=== PATIENT | male | born 1945 | race Caucasian/White ===

== ENCOUNTER 2017-01-31 15:37 | Emergency (ER) | payer MEDICARE, OTHER ==
[~2017-01-31] VITALS: Ht 172.7 cm; Wt 95.2 kg
[~2017-01-31 15:37] MED LIST: ASPIRIN EC81 MG PO; CETIRIZINE HCL10 MG PO; COLACE100 MG PO; EPLERENONE25 MG PO; METOPROLOL SUCC25 MG PO; NORCO 5-325 TA1 EACH PO; PLANT STEROLS PO; RESVERATROL250 MG PO; SPIRONOLACTONE25 MG PO; TURMERIC PO; VITAMIN C1000 MG PO; VITAMIN E400 UNI4 PO
[2017-01-31] MEDS ORDERED: XARELTO20 MG PO (20:08)
[2017-01-31] MEDS ORDERED: DILTIAZEM 24HR120 M1 PO (20:08)
--- NOTE | 2017-02-01 13:37 | EKG ---
[facility] [address] [place] [address] Signed Atrial fibrillation with rapid ventricular response Left axis deviation Abnormal ECG No previous ECGs available Confirmed by LUPE QUIROZ MD ([id number]) on 02/01/2017 1:37:36 PM Electronically Signed By: LUPE QUIROZ MD 02/01/17 1337 PATIENT NAME: ODILON TROY Electrocardiogram DATE OF : 43 PHYSICIAN: LUPE QUIROZ MD REPORT #: [id number] REPORT IS CONFIDENTIAL AND NOT TO BE RELEASED WITHOUT AUTHORIZATION
== END 2017-01-31 20:29 | disposition home or self-care (01) ==
LOC: ED 15:37
DX: I48.91 Unspecified atrial fibrillation (principal); I10 Essential (primary) hypertension; Z90.89 Acquired absence of other organs; Z88.1 Allergy status to other antibiotic agents; Z88.0 Allergy status to penicillin; Z79.82 Long term (current) use of aspirin; Z79.899 Other long term (current) drug therapy
CPT/HCPCS: 80053; 84484; 85025; 93005; 93010; 96374; 96376; 99284; J2704

== ENCOUNTER 2020-01-08 02:29 | Emergency (ER) | payer MEDICARE, OTHER ==
[~2020-01-08] VITALS: Ht 172.7 cm; Wt 95.2 kg
[~2020-01-08 02:29] MED LIST changes: +DILTIAZEM 24HR120 M1 PO; +XARELTO20 MG PO
[2020-01-08] MEDS ORDERED: AMLODIPINE BESY10 MG PO (02:50)
[2020-01-08] MEDS ORDERED: BISOPROLOL FUMAR5 MG PO (02:50)
[2020-01-08] MEDS ORDERED: LISINOPRIL10 MG PO (02:51)
[2020-01-08] MEDS ORDERED: HYDRALAZINE HCL25 MG PO (02:51)
[2020-01-08] MEDS ORDERED: 24HOUR ALLERGY10 MG PO (02:52)
[2020-01-08] MEDS ORDERED: PROTONIX40 MG PO (05:57)
[2020-01-08] MEDS ORDERED: NORCO 5-325 TA1 EACH PO (05:57)
== END 2020-01-08 07:02 | disposition home or self-care (01) ==
LOC: ED 02:29
DX: R10.11 Right upper quadrant pain (principal); I48.91 Unspecified atrial fibrillation; I10 Essential (primary) hypertension; Z88.0 Allergy status to penicillin; Z88.1 Allergy status to other antibiotic agents; Z79.899 Other long term (current) drug therapy
CPT/HCPCS: 71046; 74177; 76705; 80053; 81001; 83690; 85025; 85379; 96361; 99284-25; C9113; J1170; J2405; J7030; Q9967

== ENCOUNTER 2020-08-12 08:05 | Emergency (ER) | payer MEDICARE, OTHER ==
[~2020-08-12] VITALS: Ht 172.7 cm; Wt 90.7 kg
[~2020-08-12 08:05] MED LIST changes: +24HOUR ALLERGY10 MG PO; +AMLODIPINE BESY10 MG PO; +BISOPROLOL FUMAR5 MG PO; +HYDRALAZINE HCL25 MG PO; +LISINOPRIL10 MG PO; +PROTONIX40 MG PO
[2020-08-12] MEDS ORDERED: TORSEMIDE10 MG PO (08:34)
[2020-08-12] MEDS ORDERED: INSPRA25 MG PO (08:34)
[2020-08-12] MEDS ORDERED: VALSARTAN80 MG PO (08:34)
[2020-08-12] MEDS ORDERED: GRAPE SEED50 M1 PO (08:35)
== END 2020-08-12 09:45 | disposition home or self-care (01) ==
LOC: ED 08:05
DX: S43.402A Unspecified sprain of left shoulder joint, initial encounter (principal); X50.9XXA Other and unspecified overexertion or strenuous movements or postures, initial encounter; I48.91 Unspecified atrial fibrillation; I10 Essential (primary) hypertension; Z88.0 Allergy status to penicillin; Z88.1 Allergy status to other antibiotic agents; Z79.899 Other long term (current) drug therapy
CPT/HCPCS: 73030; 99283-25

== ENCOUNTER 2021-02-18 18:34 | Emergency (ER) | payer MEDICARE ==
[~2021-02-18] VITALS: Ht 172.7 cm; Wt 90.7 kg
[~2021-02-18 18:34] MED LIST changes: +GRAPE SEED50 M1 PO; +INSPRA25 MG PO; +TORSEMIDE10 MG PO; +VALSARTAN80 MG PO
--- NOTE | 2021-02-19 21:27 | EKG ---
[facility] [address] [place], [place] [address] Signed Sinus rhythm with 1st degree AV block Left anterior fascicular block Minimal voltage criteria for LVH, may be normal variant Abnormal ECG No previous ECGs available Confirmed by JACEY RAMIREZ DO ([id number]) on 02/19/2021 9:27:45 PM Electronically Signed By: JACEY RAMIREZ DO 02/19/212126 PATIENT NAME: DANYELSREEODILON Electrocardiogram DATE OF : 43 PHYSICIAN: JACEY RAMIREZ DO REPORT #: [id number] REPORT IS CONFIDENTIAL AND NOT TO BE RELEASED WITHOUT AUTHORIZATION
== END 2021-02-18 22:17 | disposition home or self-care (01) ==
LOC: ED 18:34
DX: U07.1 COVID-19 (principal)
CPT/HCPCS: 71045; 80053; 81001; 83605; 85025; 87040; 93005; 93010

== ENCOUNTER 2023-04-04 10:14 | Emergency (ER) | payer OTHER, MEDICARE ==
[~2023-04-04] VITALS: Ht 172.7 cm; Wt 90.7 kg
[2023-04-04 10:54] LABS: BILIRUBIN, URINE NEGATIVE (negative); BLOOD/HGB, URINE NEGATIVE (Negative); KETONE, URINE NEGATIVE (Negative); LEUK ESTERASE, URINE NEGATIVE (negative); NITRITE, URINE NEGATIVE (negative)
[2023-04-04 11:01] LABS: BASOPHILS 0.6 % (0-2); EOSINOPHILS 1.6 % (0-6); HEMATOCRIT 43.5 % (35.0-50.0); HEMOGLOBIN 14.8 g/dL (12.0-18.0); MCHC 34.1 g/dl (30-36); MCV 93.8 fl (81-99); MONOCYTES 12.6 % (0-12); NEUTROPHILS 68.2 % (39-80); PLATELET COUNT 186 K/uL (140-440); RBC 4.64 M/ul (4.3-5.7); RDW 13.3 (10.5-15.0)
[2023-04-04 11:11] LABS: ALBUMIN 3.8 g/dL (3.4-5.0); ALBUMIN/GLOBULIN RATIO 1.15 (1.1-2.4); ANION GAP 13.6 (7-21); BILIRUBIN, TOTAL 1.1 ng/dL (0.2-1.0); BUN/CREATININE RATIO 15.95 (6.0-28.6); CALCIUM 8.3 mg/dL (8.5-10.1); CREATININE, SERUM 0.94 mg/dL (0.70-1.30); POTASSIUM 4.6 mmol/L (3.5-5.1); PROTEIN, TOTAL 7.1 g/dL (6.4-8.2)
[2023-04-04 15:25] VITALS: BP 154/77
== END 2023-04-04 15:27 | disposition home or self-care (01) ==
LOC: ED 10:14
PROVIDERS: Emergency Medicine
DX: K76.89 Other specified diseases of liver (principal); K80.20 Calculus of gallbladder without cholecystitis without obstruction; I48.91 Unspecified atrial fibrillation; I10 Essential (primary) hypertension; Z88.0 Allergy status to penicillin; Z88.1 Allergy status to other antibiotic agents; Z79.899 Other long term (current) drug therapy
CPT/HCPCS: 36415; 74177; 80053; 81003; 83690; 85025; 99284; J7030; Q9967

== ENCOUNTER 2024-02-20 10:15 | Inpatient (IN) | payer OTHER, MEDICARE ==
[~2024-02-20] VITALS: Ht 172.7 cm; Wt 90.3 kg
[~2024-02-20 10:15] MED LIST changes: +DIOVAN160 MG PO; -VALSARTAN80 MG PO
[2024-02-20] MEDS ORDERED: SODIUM CHLORIDE 0.9% 1,000 ML IV PRN ×2 (10:45→12:30)
[2024-02-20] MEDS ORDERED: IBUPROFEN 600 MG TAB PO ONE (10:45)
[2024-02-20] MEDS ORDERED: CEFTRIAXONE/SODIUM CHLORIDE 2 GM/100 ML PIGGYBACK IV ONE (10:45)
[2024-02-20 10:54] LABS: BASOPHILS 0.3 % (0-2); EOSINOPHILS 0.2 % (0-6); HEMATOCRIT 40.9 % (35.0-50.0); LYMPHOCYTES 4.1 % (24-44); MCH 31.7 (27-36); MCHC 34.3 g/dl (30-36); MCV 92.4 fl (81-99); MONOCYTES 7.3 % (0-12); NEUTROPHILS 88.1 % (39-80); PLATELET COUNT 281 K/uL (140-440); RBC 4.42 M/ul (4.3-5.7); RDW 12.6 (10.5-15.0)
[2024-02-20 11:01] LABS: PARTIAL THROMBOPLASTIN TIME 35.2 Sec (22.9-41.3)
[2024-02-20 11:02] LABS: INR 1.17 (0.80-1.30); PROTIME 14.2 Sec (11.2-14.2)
[2024-02-20 11:05] LABS: ALBUMIN 3.1 g/dL (3.4-5.0); ALBUMIN/GLOBULIN RATIO 0.84 (1.1-2.4); BILIRUBIN, TOTAL 0.7 ng/dL (0.2-1.0); BUN/CREATININE RATIO 6.89 (6.0-28.6); CALCIUM 8.6 mg/dL (8.5-10.1); CREATININE, SERUM 1.16 mg/dL (0.70-1.30); PROTEIN, TOTAL 6.8 g/dL (6.4-8.2)
[2024-02-20 11:10] LABS: LACTIC ACID, BLOOD 0.8 mmol/L (0.4-2.0)
[2024-02-20 11:12] LABS: BILIRUBIN, URINE NEGATIVE (negative); BLOOD/HGB, URINE SMALL (Negative); KETONE, URINE NEGATIVE (Negative); LEUK ESTERASE, URINE SMALL (negative); NITRITE, URINE NEGATIVE (negative)
[2024-02-20 11:18] LABS: CRYSTALS, URINE NONE SEEN (0-1+); EPITHELIAL CELLS, URINE 0 /lpf (0-1+); WHITE BLOOD CELLS, URINE >50 /HPF (0-5)
[2024-02-20 11:19] LABS: BACTERIA, URINE 1+ /hpf (negative); CASTS, URINE NONE SEEN \\lpf; COLLECTION TYPE, URINE CLEAN CATCH; REFLEX CULTURE, URINE Yes (No)
[2024-02-20 11:46] LABS: INFLUENZA B NAA NEGATIVE (NEGATIVE); RESPIRATORY SYNCYTIAL VIR NAA NEGATIVE (NEGATIVE)
[2024-02-20] MEDS ORDERED: ACETAMINOPHEN 500 MG TAB PO ONE (12:30)
[2024-02-20] MEDS ORDERED: PANTOPRAZOLE SODIUM 40 MG/10 ML VIAL IV SCH (14:12)
[2024-02-20] MEDS ORDERED: ENOXAPARIN SODIUM 40 MG/0.4 ML SYR SUB-Q SCH (14:13)
[2024-02-20] MEDS ORDERED: LACTATED RINGER'S 1,000 ML IV SCH (14:15)
[2024-02-20] MEDS ORDERED: ACETAMINOPHEN 325 MG TAB PO PRN (14:15)
[2024-02-20] MEDS ORDERED: VANCOMYCIN HCL125 MG PO (14:32)
[2024-02-20] MEDS ORDERED: CEFDINIR300 MG PO (14:32)
[2024-02-20 15:07] VITALS: BP 136/64
[2024-02-20] MEDS ORDERED: HYDRALAZINE HCL25 MG PO (15:22)
[2024-02-20] MEDS ORDERED: ELIQUIS5 MG PO (15:23)
[2024-02-20 16:19] VITALS: BP 136/64
[2024-02-20] MEDS ORDERED: VANCOMYCIN HCL 125 MG CAP PO SCH (17:00)
--- NOTE | 2024-02-20 17:13 | NUR ---
IN ROOM TO ADMINISTER MEDICATIONS, SEE E-MAR. PATIENT TOLERATED PO MEDS WITHOUT DIFFICULTY. PATIENT DINNER ARRIVED. PATIENT DENIES ADDITIONAL NEEDS AT THIS TIME. HOME MEDICATIONS PLACED IN THE LOCK BOX. CALL LIGHT IN REACH.
[2024-02-20] MEDS ORDERED: PIPERACILLIN/TAZOBACTAM 3.375 GM in DEXTROSE 5% 100 ML IV SCH ×2 (17:15→22:00)
[2024-02-20 17:49] VITALS: BP 151/69
--- NOTE | 2024-02-20 17:51 | NUR ---
IN ROOM TO ADMINISTER MEDICATIONS, SEE E-MAR. PATIENT EDUCATED ON SIGNS AND SYMPTOMS OF POTENTIAL ALLERGIC REACTION TO ZOSYN GIVEN HX OF ALLERGY TO PENCILLIN. PATIENT ADVISED TO CALL IF THEY EXPERIENCE ANY SIGNS OR SYMPTOMS OF ALLERGIC REACTION. PATIENT VERBALIZED UNDERSTANDING. PATIENT HAD NO IMMEDIATE COMPLAINTS AFTER THE INITIATION OF THE INFUSION. PATIENT STATED DIETARY PREFERENCE TO AVOID PORK, SHELLFISH, AND CAFFIENE. DIET MODIFIED TO INCLUDE THOSE RESTRICTIONS. VITALS ASSESSED, WITHIN NORMAL LIMITS. PATIENT PROVIDED WITH WARM BLANKETS. PATIENT DENIES ADDITIONAL NEEDS AT THIS TIME. CALL LIGHT IN REACH.
[2024-02-20 18:12] VITALS: BP 151/69
--- NOTE | 2024-02-20 19:30 | NUR ---
RESTING, EYES CLOSED, ON ROOM AIR, NO S/SX DISTRESS, ON CONTACT ISOLATION PRECAUTIONS
[2024-02-20] MEDS ORDERED: METOPROLOL TARTRATE 25 MG TAB PO SCH (21:00)
[2024-02-20] MEDS ORDERED: MELATONIN 3 MG TAB PO PRN (21:00)
[2024-02-20 21:01] VITALS: BP 142/65
--- NOTE | 2024-02-20 21:15 | NUR ---
Pt resting, awakens easily, on room air, no s/s distress. Continues on Enteric contact isolation, has not had bm since admission. lungs cleara bilar, abd distended jorden, soft, non tener. IVF infusing RAC and SL LAC patent. 1+ edema to hands bilat present, no edema to le. turns and repositions self in bed. No c/o pain, fresh fluids given on admit, alert and oriented X4
--- NOTE | 2024-02-20 22:19 | NUR ---
rESTING, EYES CLOSED, NO S/SX DISTRES, IVF INFUSING W/O PROBLEMS, CONTINUES ON CONTACT ISOLATION PRECAUTIONS
[2024-02-21] VITALS (11 sets, daily range): BP systolic 136–175; BP diastolic 61–81
--- NOTE | 2024-02-21 00:36 | NUR ---
Awake, reading on his computer, IVF infusing, used urinal, no c/o pain. continues on contact isolation precautions, no bm this shift
--- NOTE | 2024-02-21 01:28 | NUR ---
Up to brp, voided using urinal, back to bed, Independent. Tolerated well, coop with second assessment and vitals, temp 100.5 oral, medicated with Tylenol 650mg and 3 blankets remoed. IS given and return demonstration done. Pt stated understanding. lungs clear dim at bases, occassional, dry non productive cough present. Tolerating liquids well.
--- NOTE | 2024-02-21 02:56 | NUR ---
RESTING, NO S/SX DISTRESS, IVF INFUSING W/O PROBLEMS, TURNS AND REPOSITIONS SELF IN BED
[2024-02-21 05:39] LABS: HEMATOCRIT 35.4 % (35.0-50.0); MCH 31.4 (27-36); MCHC 33.9 g/dl (30-36); MCV 92.8 fl (81-99); PLATELET COUNT 229 K/uL (140-440); RBC 3.81 M/ul (4.3-5.7); RDW 12.8 (10.5-15.0)
[2024-02-21 05:50] LABS: ANION GAP 10.6 (7-21); BUN/CREATININE RATIO 6.89 (6.0-28.6); CREATININE, SERUM 1.16 mg/dL (0.70-1.30); MAGNESIUM 1.8 mg/dL (1.8-2.4); POTASSIUM 3.6 mmol/L (3.5-5.1)
[2024-02-21 06:03] LABS: LYMPHOCYTES, MANUAL DIFF 6; MONOCYTES, MANUAL DIFF 8; NEUTROPHILS, MANUAL DIFF 86
--- NOTE | 2024-02-21 06:36 | NUR ---
on room air, has slept off and on. IVF infusing, has tolerated IV abx. cooperative, up to BRp /independent in room, voiding QS, tolerating liquids well. temp WNL.
--- NOTE | 2024-02-21 07:00 | NUR ---
standing scale weight done at pts requests 90.3KG
--- NOTE | 2024-02-21 07:21 | NUR ---
REPORT FROM YAKELIN, RN
--- NOTE | 2024-02-21 08:08 | NUR ---
UR CLINICAL REVIEW: [facility] [place]-MEET INPT CRITERIA FOR UTI/GASTROENTERITIS [facility] 02/20/24 @ 1414 ORDER MATCHES REG NO AUTH REQUIRED PER [facility] GUIDELINES. WILL SEND RECORDS FOR REVIEW DISCHARGE PENDING FURTHER EVALUATION 02/23/24
--- NOTE | 2024-02-21 08:46 | NUR ---
MORNING ASSESSMENT IS COMPLETE. PATIENT DENIES PAIN, NAUSEA, OR DIARRHEA. PATIENT IS SITTING UP AT BEDSIDE TO EAT BREAKFAST, APPETITE IS GOOD. VITALS AND MORNING MEDICATIONS GIVEN. NO OTHER NEEDS AT THIS TIME.
[2024-02-21] MEDS ORDERED: LOSARTAN POTASSIUM 100 MG TAB PO SCH (09:00)
[2024-02-21] MEDS ORDERED: SPIRONOLACTONE 25 MG TAB PO SCH (09:00)
[2024-02-21] MEDS ORDERED: APIXABAN 5 MG TAB PO SCH (09:00)
--- NOTE | 2024-02-21 09:36 | NUR ---
PATIENT GIVEN GRAPE JUICE AND APPLESAUCE FOR SNACK.
--- NOTE | 2024-02-21 10:00 | NUR ---
PATIENT ALERT AND ORIENTED SITTING UP IN RECLINER. PATIENT LIVES IN HOUSE WITH . HAS STAIRS, DOES OK WITH STAIRS. STATES HE HAS CANES, WALKER, AND CRUTCHES BUT USES NONE OF THEM AT BASELINE. STATES HE DRIVES AT BASELINE. STATES HE COULD USE MORE ASSISTANCE WITH FOOD/FINANCES. INFORMATION FOR [employer], SNAP PROGRAM AND FOOD PANTRIES IN TOWN PROVIDED. DENIES OTHER NEEDS AT THIS TIME.
--- NOTE | 2024-02-21 10:39 | NUR ---
PATIENT UP TO CHAIR TO READ. PATIENT DID HAVE FORMED BM THIS MORNING. NO OTHER NEEDS AT THIS TIME.
[2024-02-21] MEDS ORDERED: VITAMIN D325 MCG PO (11:44)
[2024-02-21] MEDS ORDERED: PHARMACY RENAL DOSE ADJUSTMENT 1 DOSE MISC PO SCH (12:00)
[2024-02-21] MEDS ORDERED: VITAMIN B-12500 MCG PO (12:14)
--- NOTE | 2024-02-21 12:15 | NUR ---
medications reconciled with patient
--- NOTE | 2024-02-21 12:43 | NUR ---
GOT PATIENT A WARM BLANKET.
--- NOTE | 2024-02-21 13:38 | NUR ---
PATIENT GIVEN 1300 VANCO AND 2 TYLENOL. PATIENT IS AFEBRILE BUT SHIVERING. X2 WARM BLANKETS GIVEN.
--- NOTE | 2024-02-21 14:46 | NUR ---
PT NOT AVAILABLE FOR VISIT. PROVIDED PRAYER.
--- NOTE | 2024-02-21 15:29 | NUR ---
IV MERRUM INFUSING. CURRENT TEMPERATURE IS 101.8. PATIENT IS RESTING IN BED, COOL CLOTH ON FOREHEAD.
[2024-02-21] MEDS ORDERED: MEROPENEM 500 MG in SODIUM CHLORIDE 0.9% 100 ML IV SCH (15:30)
--- NOTE | 2024-02-21 17:36 | NUR ---
PATIENT GIVEN PO VANCO WITH DINNER. NO OTHER NEEDS AT THIS TIME.
--- NOTE | 2024-02-21 20:58 | NUR ---
oN ROOM AIR, LUNGS CELAR BILAT. ABD ACTIVE BOWEL TONES, MORE DISTENDED UPPER ABD THAN YESTERDAY PER MY ASSESSMENT. DENIES ANY CHANGES. HAS HAD LOOSE GREE-YELLOW MUCOID BM'S, USES URINAL, LOW OUTPUT. TOLERATING LIQUIDS WELL. NO N/V. ivf AND iv ABX INFUSING rac, lac sl PATENT. TEMP 101.1 ENCOURAGED TO USE IS WHICH IS AT BEDSIDE, ICE PACK FOR AXILLARY AREAS GIVEN TYLENOL PER TEMP. TURNS AND REPOSITIONS SELF IN BED, CONTINUES ON CONTACT ENTERIC PRECAUTIONS
--- NOTE | 2024-02-21 21:14 | NUR ---
DR BURRELL NOTIFIED VERBALLY OF PTS TEMP OD 101.1 ORALLY, AND THIS NURSES ASSSESSMENT OF MILD INCREASED OF ABDOMINAL DISTENTION, SOFT, NONTENDER, GOOD BT'S AND HAVING BM'S. VERBAL ORDER TO DO ABD XR IN AM.
--- NOTE | 2024-02-21 22:21 | NUR ---
Awakens easily, temp 101.8 orally. He placed ice poacks to forehead, Room temp decreaesd to 70 earlier.2 white Linen covers removed. IS at bedside, return demonstration done and encouragd to use often 10X/hr. stated understanding. WIll bring more ice packs for axillary areas and groin, pt instructed.
--- NOTE | 2024-02-21 23:30 | NUR ---
CALL LIGHT ANSWERED, ANTIBIOTIC INFUSION COMPLETE. IVF INFUSING ORDERED.
[2024-02-22] VITALS (9 sets, daily range): BP systolic 139–175; BP diastolic 63–84
--- NOTE | 2024-02-22 01:05 | NUR ---
PT AWAKE AND ALERT, UP AMB IN ROOM TO BR TO VOID PER URINAL, BACK TO BED, ALERT AND ORIENTENED, VS DONE, AFEBRILE AT 98.9, PT DENIES NEEDS, IV INFUSING WELL.
--- NOTE | 2024-02-22 02:35 | NUR ---
PT RESTING QUIETLY ON RIGHT SIDE, RESP EVEN AND REG, RT A/B STARTED PER ORDER,
--- NOTE | 2024-02-22 03:50 | NUR ---
PT APPEARS TO SLEEP, LAYING ON RIGHT SIDE, IV INFUSING WELL.
--- NOTE | 2024-02-22 05:15 | NUR ---
PT AWAKE, ALERT, VS COMPLETED, PT'S TEMP NOW 102.4 PO, MEDICATED WITH TYLENOL PER ORDER, REPORT RECEIVED MD AWARE OF TEMP EARILIER. PT VOIDING WELL, ICE PACKS GIVEN PER REQUEST, IV PATENT, SITE INTACT, PT FLUSHED. LAB IN FOR AM BLOOD DRAW.
[2024-02-22 05:46] LABS: HEMATOCRIT 37.4 % (35.0-50.0); HEMOGLOBIN 12.6 g/dL (12.0-18.0); MCH 31.5 (27-36); MCHC 33.8 g/dl (30-36); MCV 93.4 fl (81-99); PLATELET COUNT 212 K/uL (140-440); RBC 4.01 M/ul (4.3-5.7); RDW 12.8 (10.5-15.0)
[2024-02-22 06:07] LABS: BANDS, MANUAL DIFF 5; LYMPHOCYTES, MANUAL DIFF 5; MONOCYTES, MANUAL DIFF 4; NEUTROPHILS, MANUAL DIFF 86
[2024-02-22 06:09] LABS: ALBUMIN 2.6 g/dL (3.4-5.0); ALBUMIN/GLOBULIN RATIO 0.76 (1.1-2.4); ANION GAP 7.7 (7-21); BILIRUBIN, TOTAL 0.6 ng/dL (0.2-1.0); BUN/CREATININE RATIO 7.43 (6.0-28.6); CALCIUM 8.3 mg/dL (8.5-10.1); CREATININE, SERUM 1.21 mg/dL (0.70-1.30); POTASSIUM 3.7 mmol/L (3.5-5.1)
--- NOTE | 2024-02-22 07:51 | NUR ---
RECIEVED SHIFT REPORT. PT IS RESTING IN BED, WOKE UP WHEN THIS RN ENTER ROOM. DENIES NEEDS. CALL LIGHT IN REACH
--- NOTE | 2024-02-22 08:20 | NUR ---
MORNING ASSESSMENT COMPLETE. PT IS AWAKE IN RECLINER EATING BREAKFAST. DENIES DISCOMFORT AT THIS TIME. CALL LIGHT IN REACH.
[2024-02-22] MEDS ORDERED: PANTOPRAZOLE SODIUM 40 MG TABEC PO SCH (09:00)
--- NOTE | 2024-02-22 11:13 | NUR ---
PT NOT AVAILABLE FOR VISIT. PROVIDED PRAYER.
--- NOTE | 2024-02-22 14:53 | NUR ---
PT RECEIVES TYLENOL ORDERED, PRN. FRESH WATER PROVIDED. CALL [facility] IN REACH. NO FURTHER REQUESTS AT THIS TIME.
--- NOTE | 2024-02-22 19:03 | NUR ---
PATIENT IS IN TAKING A SHOWER.
--- NOTE | 2024-02-22 19:10 | NUR ---
RECEIVED REPORT FROM ANIL CANAS. PT UP IN CHAIR, VISITING W/ . DENIES NEEDS.
--- NOTE | 2024-02-22 20:15 | NUR ---
PT UP IN RECLINER, VISITING W/ SPOUSE AND TALKING TO FAMILY ON PHONE. VSS. MEDS ADMINISTERED PER EMAR. DENIES PAIN. LSC. HRIR. BT HYPERACTIVE. ABD SOFT, NON-TENDER. DENIES N/V. ELIZA GEN DIET. VOIDS WNL. LAC IV INFUSING LR. RAC IV SL'D. 1+ EDEMA TO BR. PT IND IN ROOM. CALL LIGHT WITHIN REACH.
--- NOTE | 2024-02-22 22:49 | NUR ---
PT AWAKE, SLEEPING BETWEEN CARES. DENIES ANY NEEDS AT THIS TIME. CALL LIGHT W/IN REACH.
--- NOTE | 2024-02-23 00:31 | NUR ---
PT SLEEPING SOUNDLY ON LEFT SIDE. CALL LIGHT WITHIN REACH.
--- NOTE | 2024-02-23 02:28 | NUR ---
PT SLEEPING SOUNDLY, AWAKENS WHEN RN ENTERS ROOM. IV ATB ADMINISTERED PER EMAR. PT STOOD AT EOB TO USE URINAL IND. REPORTS FEELING LIKE HE HAS A FEVER, TEMP 101.9. SOME BLANKETS REMOVED, TYLENOL ADMINISTERED. CALL LIGHT WITHIN REACH.
--- NOTE | 2024-02-23 04:06 | NUR ---
PT AWAKE, REPORTS FEELING LIKE FEVER BROKE. TEMP NOW 99.1. STILL REPORTS SOME DYSURIA. UO CLEAR AND YELLOW.
--- NOTE | 2024-02-23 04:12 | NUR ---
PT HERE FOR C-DIFF INF AND UTI. PLEASANT AND COOEPRATIVE. FEBRILE X 1, RESOLVED W/ PRN TYLENOL. STOOLS FIRMING UP. PO VANCO & IV MEREM. CONTACT ENTERIC PRECAUTIONS. PT REPORTS ONGOING DYSURIA.
[2024-02-23 05:36] VITALS: BP 149/74
--- NOTE | 2024-02-23 05:37 | NUR ---
PT AWAKE, LAB IN TO DRAW BLOOD. VSS. WATER REFRESHED. DENIES ANY OTHER NEEDS.
[2024-02-23 05:57] LABS: HEMATOCRIT 36.1 % (35.0-50.0); HEMOGLOBIN 12.3 g/dL (12.0-18.0); MCH 31.4 (27-36); MCV 92.2 fl (81-99); PLATELET COUNT 190 K/uL (140-440); RBC 3.92 M/ul (4.3-5.7); RDW 13.1 (10.5-15.0)
[2024-02-23 06:08] LABS: ANION GAP 10.7 (7-21); BUN/CREATININE RATIO 9.25 (6.0-28.6); CALCIUM 8.2 mg/dL (8.5-10.1); CREATININE, SERUM 1.08 mg/dL (0.70-1.30); POTASSIUM 3.7 mmol/L (3.5-5.1)
[2024-02-23 06:17] LABS: BANDS, MANUAL DIFF 4; EOSINOPHILS, MANUAL DIFF 1; LYMPHOCYTES, MANUAL DIFF 14; NEUTROPHILS, MANUAL DIFF 81
--- NOTE | 2024-02-23 07:05 | NUR ---
REPORT RECEIVED FROM ANIL KARIMI. PT SITTING UP AT BEDSIDE "CONTEMPLATING THE DAY". NO NEEDS AT THIS TIME, CALL LIGHT IN REACH.
[2024-02-23 08:16] VITALS: BP 154/72
--- NOTE | 2024-02-23 08:20 | NUR ---
MORNING ASSESSMENT COMPLETE. PT IS EATING BREAKFAST IN CHAIR. DISCOMFORT IN THE BACK, CHRONIC, TOLERABLE. STATES BURNING WHEN URINATING IS STILL PRESENT. ABD HYPERACTIVE, PASSING GAS. BILAT LE +1 EDEMA. PT ENCOURAGED TO ELEVATE LEGS. CALL LIGHT IN REACH.
--- NOTE | 2024-02-23 10:49 | NUR ---
VISITED DURING SPIRITUAL CARE ROUNDS. PT IN OVERALL GOOD SPIRITS, EXPRESSED FRUSTRATION WITH ILLNESS, GRATITUDE FOR CARE, DEE. INSTALLATION TECH PROVIDED SUPPORTIVE PRESENCE, HOSPITALITY, PRAYER. PT EXPRESSED GRATITUDE.
--- NOTE | 2024-02-23 12:35 | NUR ---
UR CONCURRENT REVIEW: [facility] [place]-PATIENT DOES NOT MEED GL DAY 2, VARIANCE COMPLETED [facility] INPT 02/20/24 @1418 DISCHARGE TO HOME WHEN STABLE. PATIENT REMAIN FEBRILE. 02/25/24
--- NOTE | 2024-02-23 13:09 | NUR ---
PATIENT GIVEN PO VANCO AFTER LUNCH.
[2024-02-23 13:51] VITALS: BP 146/72
--- NOTE | 2024-02-23 15:03 | NUR ---
BEFORE DOING PATIENT'S 1400 VITALS HAD SOMEONE BRING ME SOME FRESH WATER. PATIENT SITTING UP IN HIS CHAIR.
[2024-02-23 17:48] VITALS: BP 155/72
--- NOTE | 2024-02-23 19:10 | NUR ---
REPORT RECEIVED FROM AUSTEN MA. pt SITTING IN THE CHAIR. BOARD UPDATED. CALL LIGHT WITHIN REACH. NO OTHER NEEDS AT THIS TIME.
[2024-02-23 20:14] VITALS: BP 161/75
[2024-02-23 20:23] VITALS: BP 161/75
--- NOTE | 2024-02-23 20:30 | NUR ---
ASSESSMENT AND VITAL SIGNS DONE. pt SITTING IN THE CHAIR. IV ABX INFUSING PER ORDER. IV'S ASSESSED, WNL. pt RESTING IN THE CHAIR. SCHEDULED MEDICATIONS ADMINISTERED. pt DENIES ANY OTHER NEEDS AT THIS TIME. ACTIVE BOWEL TONES. pt STATES HE IS HAVING FORMED STOOLS. CALL LIGHT WITHIN REACH. WATER REFRESHED.
--- NOTE | 2024-02-23 22:24 | NUR ---
pt RESTING IN THE BED READING A BOOK. pt DENIES ANY OTHER NEEDS AT THIS TIME. CALL LIGHT WITHIN REACH.
[2024-02-24] VITALS (9 sets, daily range): BP systolic 139–177; BP diastolic 66–77
--- NOTE | 2024-02-24 00:35 | NUR ---
pt SL PER VERBAL ORDER. pt DENIES ANY NEEDS AT THIS TIME. CALL LIGHT WITHIN REACH.
--- NOTE | 2024-02-24 03:02 | NUR ---
pt RESTING IN THE BED WITH EYES CLOSED. RR EVEN AND UNLABORED. CALL LIGHT WITHIN REACH.
--- NOTE | 2024-02-24 04:48 | NUR ---
pt RESTING IN THE BED. ASSESSMENT AND VITAL SIGNS. IV ABX FINISHED INFUSING. pt SL. pt DENIES ANY NEEDS AT THIS TIME. CALL LIGHT WITHIN REACH.
[2024-02-24 05:58] LABS: HEMATOCRIT 37.7 % (35.0-50.0); HEMOGLOBIN 13.1 g/dL (12.0-18.0); MCH 31.9 (27-36); MCHC 34.7 g/dl (30-36); MCV 92.1 fl (81-99); PLATELET COUNT 196 K/uL (140-440); RBC 4.09 M/ul (4.3-5.7); RDW 13.1 (10.5-15.0)
[2024-02-24 06:13] LABS: ANION GAP 9.9 (7-21); BUN/CREATININE RATIO 11.88 (6.0-28.6); CALCIUM 8.5 mg/dL (8.5-10.1); CREATININE, SERUM 1.01 mg/dL (0.70-1.30); POTASSIUM 3.9 mmol/L (3.5-5.1)
[2024-02-24 06:34] LABS: BANDS, MANUAL DIFF 9; BASOPHILS, MANUAL DIFF 1; EOSINOPHILS, MANUAL DIFF 5; LYMPHOCYTES, MANUAL DIFF 11; MONOCYTES, MANUAL DIFF 9; NEUTROPHILS, MANUAL DIFF 65
--- NOTE | 2024-02-24 07:15 | NUR ---
REPORT RECIEVED FROM ANIL COLÓN. PT SITTING UP IN RECLINER READING A BOOK. PT RESPONDS WHEN ADDRESSED. PT DENIES ANY NEEDS AT THIS TIME. CALL LIGHT IN REACH.
--- NOTE | 2024-02-24 08:33 | NUR ---
IN TO ADMINISTER MEDICATIONS, SEE MAR. PT SITTING UP IN RECLINER AND RESPONDS WHEN ADDRESSED. PT TAKES PO MEDICATIONS WITH NO ISSUES. PT DENIES PAIN AT THIS TIME. ASSESSMENT COMPLETE. LUNG SOUNDS CLEAR. BOWEL TONES ACTIVE. ABD NON-TENDER WITH PALPATION, MILD DISTENTION NOTED. PT REPORTING HAVING A FORMED BM THIS MORNING. URINAL EMPTIED. IVs FLUSH WNL. BREAKFAST ARRIVES. PT DENIES ANY OTHER NEEDS AT THIS TIME. CALL LIGHT IN REACH.
--- NOTE | 2024-02-24 08:48 | NUR ---
PATIENT IN CHAIR AT THIS TIME. CALL LIGHT WITHIN REACH, NO FURTHER NEEDS AT THIS TIME.
--- NOTE | 2024-02-24 10:18 | NUR ---
PATIENT IN CHAIR AT THIS TIME. RETORT FURNACE HELPER CHARTED VITALS AND I&O'S. CALL LIGHT WITHIN REACH, NO FURTHER NEEDS AT THIS TIME.
--- NOTE | 2024-02-24 11:18 | NUR ---
IN TO ROUND ON PT. PT AMBULATING TO RECLINER FROM RESTROOM. PT ASKING TO TALK TO DR. INDRA HIGUERA "WHEN DO I TAKE THE PROBIOTICS." PT DENIES ANY OTHER NEEDS AT THIS TIME. CALL LIGHT IN REACH.
--- NOTE | 2024-02-24 11:50 | NUR ---
IN TO ANSWER CALL LIGHT. PT SITTING UP IN RECLINER. IV PUMP ALARMING, IV ABX COMPLETE. PT SL AT THIS TIME. WATER PROVIDED. URINAL EMPTIED. PT DENIES ANY OTHER NEEDS AT THIS TIME. CALL LIGHT IN REACH.
--- NOTE | 2024-02-24 12:10 | NUR ---
IN TO BRING LUNCH TRAY IN ROOM. PT EDUCATED ON PROBIOTICS AND THAT CAN START TAKING THEM AFTER COMPLETING THE ABX PER DR. BURRELL. PT VERBALIZES UNDERSTANDING. TEA PROVIDED. PT DENEIS ANY OTHER NEEDS AT THIS TIME. CALL LIGHT IN REACH. PT SITTING UP IN RECLINER.
--- NOTE | 2024-02-24 12:12 | NUR ---
THIS RN ASKED DR. BURRELL REGARDING PTs QUESTION WITH PROBIOTICS. PER DR. BURRELL "NO PROBIOTICS UNTIL THE ABX ARE COMPLETE."
--- NOTE | 2024-02-24 13:56 | NUR ---
IN TO ADMINISTER MEDICATIONS, SEE MAR. PT SITTING UP IN RECLINER AND RESPONDS WHEN ADDRESSED. PT TAKES PO MEDICATION WITH NO ISSUES. ASSESSMENT COMPLETE. ABD NON-TENDER WITH PALPATION. ABD DISTENTION NOTED. PT DENIES ANY ABD PAIN. PT DENIES ANY BM SINCE THIS MORNING. EDEMA NOTED TO BLE. PTs FAMILY ENTERS ROOM. PT DENIES ANY OTHER NEEDS AT THIS TIME. CALL LIGHT IN REACH.
--- NOTE | 2024-02-24 15:28 | NUR ---
PATIENT IN CHAIR AT THIS TIME. ARC WELDING MACHINE OPERATOR CHARTED PATIENTS VITALS AND I&O'S. CALL LIGHT WITHIN REACH, NO FURTHER NEEDS AT THIS TIME.
--- NOTE | 2024-02-24 15:34 | NUR ---
IN TO ROUND ON PT. PT SITTING UP IN RECLINER VISITING WITH FAMILY. PT DENIES ANY NEEDS AT THIS TIME. CALL LIGHT IN REACH.
--- NOTE | 2024-02-24 17:10 | NUR ---
In with pt for med administration. Pt IVF are complete, pt s/l, IV flushes well, no return, no leaking, redness, or swelling noted, pt has no c/o pain or tenderness at site. Pt denies needs at this time. Call light in reach.
--- NOTE | 2024-02-24 18:18 | NUR ---
IN TO ROUND ON PT. PT SITTING UP IN RECLINER VISITING WITH FAMILY. PT REQUESTING STEVE ALVARADO, PROVIDED. PT DENIES ANY OTHER NEEDS AT THIS TIME. CALL LIGHT IN REACH.
--- NOTE | 2024-02-24 18:50 | NUR ---
PATIENT IN CHAIR AT THIS TIME. SUPERVISOR KNITTING CHARTED VITALS AND I&O'S, SUPERVISOR KNITTING BROUGHT IN 2 PUDDINGS PER PATIENTS REQUEST. CALL LIGHT WITHIN REACH, NO FURTHER NEEDS AT THIS TIME.
--- NOTE | 2024-02-24 19:15 | NUR ---
REPORT RECEIVED FROM RENO MA. BOARD UPDATED. pt DENIES ANY OTHER NEEDS AT THIS TIME. CALL LIGHT WITHIN REACH.
--- NOTE | 2024-02-24 20:10 | NUR ---
ASSESSMENT AND VITAL SIGNS DONE. pt SITTING IN THE CHAIR. IV ABX INFUSING PER ORDER, SEE MAR. SCHEDULED MEDS ADMINISTERED. BOWEL TONES ACTIVE. WATER REFRESHED. pt DENIES ANY OTHER NEEDS AT THIS TIME.
--- NOTE | 2024-02-25 00:42 | NUR ---
pt RESTING IN THE BED WITH EYES CLOSED. RR EVEN AND UNLABORED. CALL LIGHT WITHIN REACH.
--- NOTE | 2024-02-25 02:35 | NUR ---
pt AWAKE IN THE BED AND STATE HIS LEGS ARE FEELING RESTLESS. pt OFFERED A ICE PACK OR A HEAT PACK FOR THE ACHE. pt TOOK AN ICE PACK. NO OTHER NEEDS AT THIS TIME. CALL LIGHT WITHIN REACH.
[2024-02-25 05:32] VITALS: BP 177/89
--- NOTE | 2024-02-25 05:33 | NUR ---
PRESS MACHINE FEEDER OBTAINED VITALS AND I&O. PRIMARY RN NOTIFED OF B/P OF . PT URINAL EMPTIED. PT STATES NO NEEDS AT THIS TIME. CALL LIGHT WITHIN REACH.
--- NOTE | 2024-02-25 06:50 | NUR ---
pt RESTED THROUGH OUT THE NIGHT. pt NEEDED PRN PAIN MEDICATION IN THE NIGHT. NO OTHER CONCERNS AT THIS TIME. NO BMs IN THE NIGHT.
--- NOTE | 2024-02-25 07:06 | NUR ---
Pt report received from ANIL Meeks. Pt is resting quietly in bed, breathing is regular, even, and non-labored. Call light in reach.
--- NOTE | 2024-02-25 07:42 | NUR ---
UR CONCURRENT REVIEW: [facility]-PATIENT MEETS DC CRITERIA FOR GASTROENTERITIS [facility] INPT 02/20/24 @1414 ORDER MATCHES REG WILL SEND UPDATED CLINICALS TODAY. DISCHARGE TO HOME WHEN STABLE. WILL NOTIFY PHYSICIAN DC CRITERIA MET 02/28/24
--- NOTE | 2024-02-25 08:14 | NUR ---
PATIENT IN BATHROOM AT THIS TIME. BOWLING BALL MOLDER WENT INTO PATIENTS ROOM FOR ROUNDINGS. CALL LIGHT WITHIN REACH, NO FURTHER NEEDS AT THIS TIME.
[2024-02-25 08:21] VITALS: BP 145/79
[2024-02-25 08:22] VITALS: BP 145/79
--- NOTE | 2024-02-25 09:56 | NUR ---
CONTINUES WITHOUT CASE MANAGEMENT NEEDS AT THIS TIME. PLAN TO DC HOME TODAY AFTER IV ANTIBIOTIC COMPLETED. IMM LETTER DISCUSSED AND COPY PROVIDED.
--- NOTE | 2024-02-25 10:13 | NUR ---
PATIENT IN CHAIR AT THIS TIME. RESEARCH ASSOCIATE PROFESSOR CHARTED I&O'S AND RN CHARTED VITALS. CALL LIGHT WITHIN REACH, NO FURTHER NEEDS AT THIS TIME.
[2024-02-25] MEDS ORDERED: CEFDINIR300 MG PO (12:08)
[2024-02-25 13:40] VITALS: BP 151/90
[2024-02-25] MEDS ORDERED: CEFDINIR 300 MG CAP PO ONE (13:45)
== END 2024-02-25 13:50 | disposition home or self-care (01) | DRG 872 ==
LOC: ED 10:15 → MS 14:14
PROVIDERS: Emergency Medicine; ADMIT Student in an Organized Health Care Education/Training Program; ATTEND Student in an Organized Health Care Education/Training Program
DX: A41.9 Sepsis, unspecified organism (principal); N39.0 Urinary tract infection, site not specified; A04.72 Enterocolitis due to Clostridium difficile, not specified as recurrent; I48.92 Unspecified atrial flutter; I10 Essential (primary) hypertension; I48.91 Unspecified atrial fibrillation; M25.551 Pain in right hip; B96.89 Other specified bacterial agents as the cause of diseases classified elsewhere; N40.0 Benign prostatic hyperplasia without lower urinary tract symptoms; G89.29 Other chronic pain; K76.89 Other specified diseases of liver; Z98.890 Other specified postprocedural states; Z90.49 Acquired absence of other specified parts of digestive tract; Z87.438 Personal history of other diseases of male genital organs; Z88.0 Allergy status to penicillin; Z88.1 Allergy status to other antibiotic agents; Z79.899 Other long term (current) drug therapy; Z79.01 Long term (current) use of anticoagulants; Z90.89 Acquired absence of other organs
CPT/HCPCS: 36415; 71045; 74018; 74177; 80048; 80053; 81001; 83605; 83735; 85025; 85060; 85610; 85730; 87040; 87077; 87088; 87186; 87502; 97161; A9270; J0696; J1650; J2185; J2470; J2543; J7030; J7121; Q9967; U0002

== ENCOUNTER 2024-03-02 19:20 | Emergency (ER) | payer OTHER, MEDICARE ==
[~2024-03-02] VITALS: Ht 172.7 cm; Wt 91.8 kg
[~2024-03-02 19:20] MED LIST changes: +CEFDINIR300 MG PO; +ELIQUIS5 MG PO; +VANCOMYCIN HCL125 MG PO; +VITAMIN B-12500 MCG PO; +VITAMIN D325 MCG PO
--- OUTSIDE RECORDS SUMMARY | 2024-03-02 19:26 | XMS ---
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 Leora has no Care Guidelines for this patient. Marciano VISIT COUNT (12 MO.) 3 [facility] [place] [facility] TOTAL 3 NOTE: Visits indicate total known visits. ED/C VISIT TRACKING (12 MO.) 03/02/2024 19:20 [facility] TYPE: Emergency COMPLAINT: - BLOOD IN URINE 02/20/2024 10:15 [facility] [place] TYPE: Emergency COMPLAINT: - FEVER 04/04/2023 10:14 [facility] [place] TYPE: Emergency COMPLAINT: - ABDOMINAL PAIN DIAGNOSES: - Allergy status to other antibiotic agents - Allergy status to penicillin - Calculus of gallbladder without cholecystitis without obstruction - Essential (primary) hypertension - Other parts counterman (current) drug therapy - Other specified diseases of liver - Right upper quadrant pain - Unspecified atrial fibrillation INPATIENT VISIT TRACKING (12 MO.) 02/20/2024 14:14 [facility] [place] TYPE: Medical Surgical COMPLAINT: - COMPLICATED UTI/SEPSIS DIAGNOSES: - Acquired absence of other organs - Acquired absence of other organs - Acquired absence of other specified parts of digestive tract - Acquired absence of other specified parts of digestive tract - Allergy status to other antibiotic agents - Allergy status to other antibiotic agents - Allergy status to penicillin - Allergy status to penicillin - Benign prostatic hyperplasia with lower urinary tract symptoms - Benign prostatic hyperplasia without lower urinary tract symptoms - Benign prostatic hyperplasia without lower urinary tract symptoms - Enterocolitis due to Clostridium difficile, not specified as recurrent - Enterocolitis due to Clostridium difficile, not specified as recurrent - Essential (primary) hypertension - Essential (primary) hypertension - Fever, unspecified - terminal worker (current) use of anticoagulants - residential (current) use of anticoagulants - Other chronic pain - Other chronic pain - Other parts counterman (current) drug therapy - Other parts counterman (current) drug therapy - Other specified bacterial agents as the cause of diseases classified elsewhere - Other specified bacterial agents as the cause of diseases classified elsewhere - Other specified diseases of liver - Other specified diseases of liver - Other specified postprocedural states - Other specified postprocedural states - Pain in right hip - Pain in right hip - Personal history of other diseases of male genital organs - Personal history of other diseases of male genital organs - Sepsis, unspecified organism - Sepsis, unspecified organism - Unspecified atrial fibrillation - Unspecified atrial fibrillation - Unspecified atrial flutter - Unspecified atrial flutter - Urinary tract infection, site not specified - Urinary tract infection, site not specified [email or web address]
[2024-03-02 20:09] LABS: BILIRUBIN, URINE NEGATIVE (negative); BLOOD/HGB, URINE MODERATE (Negative); KETONE, URINE NEGATIVE (Negative); LEUK ESTERASE, URINE NEGATIVE (negative); NITRITE, URINE NEGATIVE (negative)
[2024-03-02 20:15] LABS: BACTERIA, URINE NONE SEEN /hpf (negative); CASTS, URINE NONE SEEN \\lpf; COLLECTION TYPE, URINE CLEAN CATCH; CRYSTALS, URINE NONE SEEN (0-1+); EPITHELIAL CELLS, URINE NONE SEEN /lpf (0-1+); REFLEX CULTURE, URINE No (No)
[2024-03-02] MEDS ORDERED: CIPRO500 MG PO (20:59)
[2024-03-02] MEDS ORDERED: CIPROFLOXACIN 500 MG TAB PO ONE (21:00)
[2024-03-02 21:21] VITALS: BP 145/72
== END 2024-03-02 21:25 | disposition home or self-care (01) ==
LOC: ED 19:20
PROVIDERS: Emergency Medicine
DX: N39.0 Urinary tract infection, site not specified (principal); I10 Essential (primary) hypertension; I48.91 Unspecified atrial fibrillation; Z79.01 Long term (current) use of anticoagulants; Z79.899 Other long term (current) drug therapy; Z88.0 Allergy status to penicillin; Z88.1 Allergy status to other antibiotic agents
CPT/HCPCS: 81001; 87088; 99283

== ENCOUNTER 2024-03-05 14:34 | Emergency (ER) | payer OTHER, MEDICARE ==
[~2024-03-05] VITALS: Ht 172.7 cm; Wt 90.9 kg
[~2024-03-05 14:34] MED LIST changes: +CIPRO500 MG PO
--- OUTSIDE RECORDS SUMMARY | 2024-03-05 14:41 | XMS ---
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 Leora has no Care Guidelines for this patient. Marciano VISIT COUNT (12 MO.) 4 [facility] [place] [facility]. TOTAL 4 NOTE: Visits indicate total known visits. ED/UCC VISIT TRACKING (12 MO.) 03/05/2024 14:35 [facility] TYPE: Emergency COMPLAINT: - POSS UTI 03/02/2024 19:20 [facility] [place] Emergency COMPLAINT: - BLOOD IN URINE 02/20/2024 10:15 [facility] [place] TYPE: Emergency COMPLAINT: - FEVER 04/04/2023 10:14 [facility] [place] [facility] [place] TYPE: Emergency COMPLAINT: - ABDOMINAL PAIN DIAGNOSES: - Allergy status to other antibiotic agents - Allergy status to penicillin - Calculus of gallbladder without cholecystitis without obstruction - Essential (primary) hypertension - Other skilled nursing (current) drug therapy - Other specified diseases of liver - Right upper quadrant pain - Unspecified atrial fibrillation INPATIENT VISIT TRACKING (12 MO.) 02/20/2024 14:[address] [facility] [place] TYPE: Medical Surgical COMPLAINT: - COMPLICATED [...] Essential (primary) hypertension - Fever, unspecified - alf (current) use of anticoagulants - alf (current) use of anticoagulants - Other chronic pain - Other chronic pain - Other watermelon harvesting supervisor (current) drug therapy - Other watermelon harvesting supervisor (current) drug therapy - Other specified bacterial [...] - Urinary tract infection, site not specified [email or web address]
[2024-03-05] MEDS ORDERED: FLECAINIDE ACE150 MG PO (14:49)
[2024-03-05 15:07] LABS: BILIRUBIN, URINE NEGATIVE (negative); BLOOD/HGB, URINE NEGATIVE (Negative); KETONE, URINE NEGATIVE (Negative); LEUK ESTERASE, URINE NEGATIVE (negative); NITRITE, URINE NEGATIVE (negative)
[2024-03-05 15:12] LABS: EPITHELIAL CELLS, URINE SQUAMOUS 1+ /lpf (0-1+)
[2024-03-05 15:13] LABS: CRYSTALS, URINE NONE SEEN (0-1+); WHITE BLOOD CELLS, URINE 21-40 /HPF (0-5)
[2024-03-05 15:15] LABS: BACTERIA, URINE RARE /hpf (negative); CASTS, URINE NONE SEEN \\lpf; COLLECTION TYPE, URINE CLEAN CATCH; REFLEX CULTURE, URINE Yes (No)
[2024-03-05] MEDS ORDERED: TRIMETHOPRIM/SULFAMETHOXAZOLE 1 EA TAB PO ONE (16:00)
[2024-03-05 16:07] VITALS: BP 130/63
[2024-03-05] MEDS ORDERED: BACTRIM DS TAB1 EACH PO (16:07)
[2024-03-10] MEDS ORDERED: VANCOMYCIN HCL125 MG PO (17:07)
== END 2024-03-05 16:13 | disposition home or self-care (01) ==
LOC: ED 14:34
PROVIDERS: Emergency Medicine
DX: N41.9 Inflammatory disease of prostate, unspecified (principal); I10 Essential (primary) hypertension; Z88.0 Allergy status to penicillin; Z88.1 Allergy status to other antibiotic agents; Z88.8 Allergy status to other drugs, medicaments and biological substances; Z79.899 Other long term (current) drug therapy; Z79.01 Long term (current) use of anticoagulants
CPT/HCPCS: 81001; 87088; 99283; A9270

== ENCOUNTER 2024-12-14 14:48 | Observation (INO) | payer OTHER, MEDICARE ==
[~2024-12-14] VITALS: Ht 172.7 cm; Wt 92.8 kg
[~2024-12-14 14:48] MED LIST changes: +BACTRIM DS TAB1 EACH PO; +FLECAINIDE ACET50 MG PO; +VITAMIN D3125 MC1 PO; -VITAMIN D325 MCG PO
[2024-12-14 15:06] LABS: MCH 31.9 PG (25.7-32.2); MCHC 34.5 g/dL (32.3-36.5); MCV 92.4 fL (79.0-92.2); RBC 4.61 M/uL (4.63-6.08)
[2024-12-14 15:20] LABS: INR 1.08 (0.80-1.30); PROTIME 13.6 Sec (11.2-14.2)
[2024-12-14 15:25] LABS: ALT (SGPT) 18.0 U/L (14-59); AST (SGOT) 15.0 U/L (15-37); GLOMERULAR FILTRATION RATE,EST 77.0 mL/min (>60); PROTEIN, TOTAL 7.0 g/dL (6.4-8.2); UREA NITROGEN 21.0 mg/dL (7-18)
[2024-12-14 15:46] LABS: EOSINOPHILS, MANUAL DIFF 2; LYMPHOCYTES, MANUAL DIFF 22; MONOCYTES, MANUAL DIFF 7; NEUTROPHILS, MANUAL DIFF 69
[2024-12-14] MEDS ORDERED: ACETAMINOPHEN 325 MG TAB PO PRN (19:00)
[2024-12-14] MEDS ORDERED: predniSONE 20 MG TAB PO SCH (21:00)
[2024-12-14 21:45] VITALS: BP 179/73
--- NOTE | 2024-12-14 22:10 | NUR ---
remaining admission documention completed, pt awake and resting in bed. son at bedside. pt a/ox4, reports dil and to come shortly to visit with pt. bed alarm on for safety and call light in reach, no additional needs or concerns verbalized. primary rn updated and aware.
--- NOTE | 2024-12-14 22:12 | NUR ---
PATIENT ALERT AND ORIENTED, NIH SCORING COMPLETED, PATIENT ANSWERS ALL QUESTIONS APPROPRIATELY, SON IN ROOM WITH PATIENT. MINOR LEFT FACIAL DROOP NOTED AND PARTIAL LOSS OF PERIPHERAL VISION ON THE LEFT SIDE. PATIENT UNABLE TO TIGHLY CLOSE LEFT EYE WELL, OTHERWISE ASSESSMENT IS NORMAL. PATIENT BROUGHT TO MS ROOM VIA STRETCHER AND THEN AMBULATED FROM STRETCHER TO BED WITHOUT DIFFICULTY. TELE #[address] ORIENTED TO ROOM. ALL QUESTIONS ANSWERED. NO FURTHER NEEDS, CALL LIGHT IN REACH
--- NOTE | 2024-12-14 22:50 | NUR ---
scheduled prednisone given-see emar. pt and family educated on medication and purpose of med r/t admission. pt utilizes chin tucking w/ med administration. family at bedside. pt in good spirits and laughing with staff. no additional needs or concerns verbalzied, call light in reach and bed alarm on for safety.
--- NOTE | 2024-12-14 23:15 | NUR ---
PATIENT RESTING IN BED, ASSESSMENT COMPLETE. RESPIRATIONS EVEN AND UNLABORED. PATIENT REQUESTING ASSISTANCE WITH HIS LEF EYE HE IS UNABLE TO CLOSE IT. HE REPORTS THAT HE THINKS TAPE IS GOING TO HELP. HE DENIES ANY PAIN, AND REPORTS SENSATION INTACT. CALL IGHT IN REACH
--- NOTE | 2024-12-14 23:48 | NUR ---
CALL LIGHT ANSWERED, PATIENT UP TO RESTROOM WITH SBA, AMBULATED WELL BACK TO BED. BED ALARM ON, RESPIRATIONS EVEN AND UNLABORED. CALL LIGHT IN REACH
[2024-12-15] VITALS (8 sets, daily range): BP systolic 149–187; BP diastolic 68–80
--- NOTE | 2024-12-15 00:47 | NUR ---
PATIENT WAS ASSISTED SBA TO THE BATHROOM. PATIENTS CALL LIGHT IS WITHIN REACH AND NO FURTHER NEEDS AT THIS TIME.
--- NOTE | 2024-12-15 01:35 | NUR ---
ROUNDED ON PATIENT, PATIENT RESTING WITH EYES CLOSED, WOKE TO RN SPEAKING TO PATIENT. VS OBTAINED AND RECORDED. OUTPUT DOCUMENTED, REPSIRATIONS EVEN AND UNLABORED, PATIENT DENIES ANY NEEDS, BED ALARM ON. CALL LIGHT IN REACH
--- NOTE | 2024-12-15 04:15 | NUR ---
PATIENT WAS ASSISTED SBA TO BATHROOM. PATIENT WAS PROVIDED WITH A WARM WASH CLOTH FOR HIS FACE. PATIENT IS LAYING IN BED WITH CALL LIGHT IN REACH AND NO FURTHER NEEDS AT THIS TIME.
[2024-12-15 05:48] LABS: BASOPHILS 0.3 % (0.2-1.2); EOSINOPHILS 0 % (0.8-7.0); LYMPHOCYTES 7.6 % (21.8-53.1); MCH 31.5 PG (25.7-32.2); MCHC 34.2 g/dL (32.3-36.5); MCV 92.3 fL (79.0-92.2); MONOCYTES 1.3 % (5.3-12.2); NEUTROPHILS 90.5 % (34.0-67.9); RBC 4.82 M/uL (4.63-6.08)
[2024-12-15 06:04] LABS: ALT (SGPT) 23.0 U/L (14-59); AST (SGOT) 18.0 U/L (15-37); CHOLESTEROL/HDL RATIO 4.3; GLOMERULAR FILTRATION RATE,EST 71.0 mL/min (>60); LDL CHOLESTEROL 128.0 mg/dL (< 129); NON-HDL CHOLESTEROL 140.0; PHOSPHORUS, INORGANIC 2.5 mg/dL (2.5-4.9); PROTEIN, TOTAL 7.2 g/dL (6.4-8.2); UREA NITROGEN 18.0 mg/dL (7-18); VLDL CHOLESTEROL 12.0
--- NOTE | 2024-12-15 06:04 | NUR ---
ROUNDED ON PATIENT, PRE-SCREENING FOR MRI FORM COMPLETE. PATIENT ALERT AND ORIENTED, REMAINS UNABLE TO CLOSE HIS LEFT EYE COMPLETELY, HOWEVER IT HAS IMPROVED. SLIGHT LEFT FACIAL DROOP REMAINS BUT THIS HAS IMPROVED ALSO. PATIENT DENIES ANY NEEDS, CALL LIGHT IN REACH. DIETARY CONTACTED TO INFORM OF PATIENT REQUEST OF NO PORK OR SHELLFISH.
--- NOTE | 2024-12-15 07:03 | NUR ---
REPORT RECEIVED FROM SEMICONDUCTOR ENGINEER ANIL STEPHENS. PATIENT IS LYING IN BED WITH HOB ELEVATED. PATIENT WITH EYES OPEN AND RESPIRATIONS ARE EVEN AND UNLABORED. PATIENT IS ON HIS PHONE. CALL LIGHT AND PERSONAL BELONGINGS ARE WITHIN REACH.
--- NOTE | 2024-12-15 07:37 | NUR ---
UR CLINICAL REVIEW: 2 MN ASA, MEETS OBS FOR FACIAL WEAKNESS, STROKE RULE OUT BLOOD PRESSURES [id number], CARDIAC MONITORING, MRI, LABS, NEURO CHECKS, ECHO, PT/OT/ST EVALS MEDICARE OBS 12/14/2024 @ 1903 ORDER MATCHES REG NO AUTH REQUIRED PER MEDICARE RULES PLAN TO DC TO HOME WHEN MEDICALLY CLEARED 12/16/2024
--- NOTE | 2024-12-15 07:37 | NUR ---
ECHO IS IN THE ROOM AT THIS TIME.
--- NOTE | 2024-12-15 08:13 | NUR ---
EXPEDITION SUPERVISOR IN ROOM, THIS RN ASSISTED WITH BUBBLE STUDY. IV TO (L) AC PATENT AND RETURNS BLOOD FOR GOOD STUDY. PT LEFT TO COMPLETE STUDY WITH EXPEDITION SUPERVISOR AT THIS TIME.
--- NOTE | 2024-12-15 08:17 | NUR ---
PATIENT IS LYING IN BED WITH EYES OPEN AND RESPIRATIONS ARE EVEN AND UNLABORED. PATIENT IS WATCHING TV. PATIENT STATED NO FURTHER NEEDS AT THIS TIME. CALL LIGHT AND PERSONAL BELONGINGS ARE WITHIN REACH.
--- NOTE | 2024-12-15 08:36 | NUR ---
PATIENT IN BED AT THIS TIME. BRIEF WRITER CHARTED HOURLY ROUNDS. CALL LIGHT WITHIN REACH, NO FURTHER NEEDS.
--- NOTE | 2024-12-15 09:16 | NUR ---
PATIENT IS LYING IN BED WITH HOB ELEVATED AND EYES OPEN WITH RESPIRATIONS EVEN AND UNLABORED. FULL ASSESSMENT COMPLETE AND DOCUMENTED IN THE CHART. PATIENT LAST BM WAS 12/13/24. PATIENT IS ON A REGULAR DIET WITH SOFT AND BITE SIZED TEXTURE. PATIENT IS ON ROOM AIR. PATIENT IS ON TELEMETRY NUMBER 9 AND IS IN SINUS RHYTHM. HEART TONES IRREGULAR ON AUSCULTATION. PATIENT REPORTS 1/10 IN THE LEFT SIDE OF THE FACE. PATIENT IS NOT REQUESTING ANYTHING FOR PAIN AT THIS TIME. PATIENT STATED NO FURTHER NEEDS AT THIS TIME. CALL LIGHT AND PERSONAL BELONGINGS ARE WITHIN REACH.
[2024-12-15] MEDS ORDERED: ARTIFICIAL TEARS 15 ML BTL OS PRN (09:30)
[2024-12-15] MEDS ORDERED: CIALIS20 MG PO (10:09)
--- NOTE | 2024-12-15 10:21 | NUR ---
PT WORKING WITH PHYSICAL THERAPY AT THIS TIME.
--- NOTE | 2024-12-15 10:28 | NUR ---
INTO SEE PATIENT. PERSONAL HEALTH INFORMATION REVIEWED. PATIENT LIVES IN A HOUSE WITH HIS . HE HAS 10 STEPS IN HIS HOME. DENIES DIFFCULTY DOING THEM. NO DME. DOES DRIVE. PATIENT DOES STATE SOME DIFFCULTY PAYING BILLS. TALKED WITH HIM ABOUT REACHING OUT TO [facility] FOR ASSISTANCE AND CALLING TO APPLY FOR FOOD STAMPS. PATIENT DENIES ANY OTHER CM NEEDS.
--- NOTE | 2024-12-15 10:44 | NUR ---
PT IS WORKING WITH OCCUPATIONAL THERAPY AT THIS TIME.
--- NOTE | 2024-12-15 11:08 | NUR ---
PT SITTING UP IN CHAIR VISITING WITH FAMILY. RR EVEN AND UNLABORED. CALL LIGHT AND PERSONAL BELONGINGS WITHIN REACH.
[2024-12-15] MEDS ORDERED: XYZAL5 MG PO (11:13)
--- NOTE | 2024-12-15 11:13 | NUR ---
MED REC COMPLETE
--- NOTE | 2024-12-15 11:50 | NUR ---
VISITED DURING SPIRITUAL CARE ROUNDS. PT APPEARED TO BE SLEEPING. DID NOT DISTURB. PROVIDED PRAYER.
[2024-12-15] MEDS ORDERED: PHARMACY RENAL DOSE ADJUSTMENT 1 DOSE MISC PO SCH (12:00)
--- NOTE | 2024-12-15 12:06 | NUR ---
PT SITTING UP IN CHAIR VISITING WITH FAMILY MEMBERS. RR EVEN AND UNLABORED. PROVIDED PT WITH FRESH ICE WATER. PT VERBALIZED NO FURTHER NEEDS AT THIS TIME. CALL LIGHT AND PERSONAL BELONGINGS WITHIN REACH.
--- NOTE | 2024-12-15 13:15 | NUR ---
PATIENT LEFT THE FLOOR AT THIS TIME WITH MRI.
--- NOTE | 2024-12-15 14:17 | NUR ---
PATIENT IS SITTING UPRIGHT IN THE CHAIR WITH EYES OPEN AND RESPIRATIONS ARE EVEN AND UNLABORED. PATIENT IS TALKING ON THE PHONE. PATIENT WITH TWO VISITORS SITTING ON THE COUCH. CALL LIGHT AND PERSONAL BELONGINGS ARE WITHIN REACH.
--- NOTE | 2024-12-15 14:41 | NUR ---
PT UP IN ROOM AND AMBULATING. PT VISITING WITH DR. LAWS AT THIS TIME; AND DAUGHTER PRESENT IN ROOM. CALL LIGHT AND PERSONAL BELONGINGS ARE WITHIN REACH.
[2024-12-15] MEDS ORDERED: PREDNISONE20 MG PO ×2 (15:04→15:10)
[2024-12-15] MEDS ORDERED: VALACYCLOVIR500 MG PO (15:05)
--- NOTE | 2024-12-15 15:10 | NUR ---
MARIKA IN CHAIR AT THIS TIME. DATABASE ANALYST CHARTED VITALS AND I&O'.S CALL LIGHT WITHIN REACH, NO FURTHER NEEDS.
--- NOTE | 2024-12-15 15:11 | NUR ---
PT SITTING IN CHAIR VISITING WITH DAUGHTER AND . JACKI MASON, IS IN ROOM CHARTING. CALL LIGHT AND PERSONAL BELONGINGS WITHIN REACH. RR EVEN AND UNLABORED.
--- NOTE | 2024-12-15 23:06 | EKG ---
[facility] [address] [place] [address] Signed Sinus bradycardia with 1st degree AV block Left axis deviation Right bundle branch block Minimal voltage criteria for LVH, may be normal variant ( R in aVL ) Abnormal ECG When compared with ECG of 10-MAR-2024 09:46, Vent. rate has decreased BY 46 BPM Right bundle branch block has replaced Nonspecific intraventricular block Confirmed by Jimenez Laws MD () on 12/15/2024 11:06:26 PM Electronically Signed By: JIMEENZ LAWS MD 12/15/24 2306 PATIENT NAME: ODILON TROY Electrocardiogram DATE OF : 43 PHYSICIAN: JIMENEZ LAWS MD REPORT #: [id number] REPORT IS CONFIDENTIAL AND NOT TO BE RELEASED WITHOUT AUTHORIZATION
--- NOTE | 2024-12-15 23:07 | EKG ---
[facility] [address] [place] [address] Signed Sinus bradycardia with 1st degree AV block Right bundle branch block Left anterior fascicular block Bifascicular block Abnormal ECG When compared with ECG of 14-DEC-2024 15:36, No significant change was found Confirmed by Jimenez Laws MD () on 12/15/2024 11:07:33 PM Electronically Signed By: JIMENEZ LAWS MD 12/15/24 2307 PATIENT NAME: ODILON TROY Electrocardiogram DATE OF : 43 PHYSICIAN: JIMENEZ LAWS MD REPORT #: [id number] REPORT IS CONFIDENTIAL AND NOT TO BE RELEASED WITHOUT AUTHORIZATION
== END 2024-12-15 16:10 | disposition home or self-care (01) ==
LOC: ED 14:48 → MS 14:50
PROVIDERS: Emergency Medicine; ADMIT Family Medicine; ATTEND Family Medicine
DX: G51.0 Bell's palsy (principal); I48.91 Unspecified atrial fibrillation; I10 Essential (primary) hypertension; Z79.01 Long term (current) use of anticoagulants; Z79.899 Other long term (current) drug therapy; Z88.0 Allergy status to penicillin; Z88.8 Allergy status to other drugs, medicaments and biological substances
CPT/HCPCS: 36415; 70450; 70496; 70498; 70553; 71045; 80053; 80061; 83036; 83735; 84100; 85025; 85610; 85730; 92526; 92610; 93005; 93010; 93306; 97165; 99285-25; A9573; G0378; J7512; Q3014; Q9967